=== PATIENT | female | born 1970 | race Caucasian/White ===

== ENCOUNTER 2019-04-08 08:12 | Outpatient (CLI) | payer OTHER ==
--- NOTE | 2019-04-09 16:05 | Nuclear Medicine Report ---
Reason: ABN THYROID FUNCTION TEST, THYROID NODULE Procedure Date: 04/08/2019 Accession Number: [id number] / [id number] Procedure: NM - Thyroid Imaging and Uptake CPT Code: 74348 FULL RESULT: EXAM: THYROID UPTAKE AND SCAN EXAM DATE: 04/08/2019 03:40 PM. CLINICAL HISTORY: ABN THYROID FUNCTION TEST, THYROID NODULE. Previous left hemithyroidectomy. COMPARISON: None available. TECHNIQUE: Patient was administered 410 microcuries of I-123 orally and returned at 6 and 24 hours for thyroid uptake measurement. At 6 hours after radioiodine ingestion, anterior gamma camera images of the patient's neck were obtained from 3 standard angles. FINDINGS: Uptake: 6 Hour: 14.5%. 24 Hour: 24.3%. Thyroid Scan: Absent left thyroid lobe. No discrete right thyroid lobe nodule. IMPRESSION: 1. Normal 6 and 24-hour uptake. 2. Absent left thyroid lobe. No discrete right thyroid lobe nodule. RADIA
== END 2019-04-08 08:13 | disposition home or self-care (01) ==
LOC: DI 08:12
PROVIDERS: ATTEND Internal Medicine Endocrinology, Diabetes & Metabolism
DX: E04.1 Nontoxic single thyroid nodule (principal); R94.6 Abnormal results of thyroid function studies
CPT/HCPCS: 78014

== ENCOUNTER 2021-11-25 07:53 | Outpatient (CLI) | payer OTHER ==
--- NOTE | 2021-11-25 12:24 | XRAY Report ---
PROCEDURE: Ankle 3 View LT INDICATIONS: ANKLE PAIN TECHNIQUE: 3 views of the ankle were acquired. COMPARISON: None FINDINGS: Bones: No fractures or dislocations. Ankle mortise is normally aligned. No suspicious bony lesions . Soft tissues: No tibiotalar joint effusion. Achilles tendon appears normal. IMPRESSION: No visualized acute fracture or dislocation. However, occult injury cannot be excluded. Recommend short interval imaging follow-up in 7-10 days as clinically indicated for additional evalua tion. Reviewed by: Soledad Garcia MD on 11/25/2021 11:23 AM JORGE Approved by: Soledad Garcia MD on 11/25/2021 11:23 AM JORGE Station ID: [id number]
== END 2021-11-25 23:59 | disposition home or self-care (01) ==
LOC: DI.WOS 07:53
PROVIDERS: ATTEND Physician Assistant
DX: M25.572 Pain in left ankle and joints of left foot (principal)

== ENCOUNTER 2022-01-05 09:16 | Outpatient (CLI) | payer OTHER ==
--- NOTE | 2022-01-05 11:11 | MRI Report ---
PROCEDURE: Shoulder LT W/O INDICATIONS: ROTATOR CUFF TEAR TECHNIQUE: Noncontrast oblique coronal T2 fast spin echo with fat saturation, oblique sagittal T1 spin echo and T2 fast spin echo with fat saturation, axial T1 spin echo and T2 fast spin echo with fat saturation t hrough the shoulder. COMPARISON: None. FINDINGS: Image quality: Excellent. Rotator cuff: Mild T2 signal elevation throughout the supraspinatus and infraspinatus tendons at the humeral insertion sites extending the muscular tendinous junctions, indicating tendinopathy. No evide nce of tearing involving the subscapularis, supra spinatus, infraspinatus, nor teres minor tendons. N o rotator cuff atrophy. Bones and bursae: No bone marrow contusions or fractures. Mild acromioclavicular joint degeneration. The acromion demonstrates conventional anatomy, without an os acromiale. Moderate subacromial/subde ltoid bursal fluid is present. Capsule and soft tissues: There is a focal region of undercutting of the mid anterior labrum. Small p monica labral cyst adjacent to the mid posterior labrum. The long head of the biceps tendon demonstrates normal location and morphology. The rotator interval appears normal, without fibrosis. The coracoh umeral ligament is normal in thickness. IMPRESSION: 1. Supraspinatus and infraspinatus tendinopathy without tear. 2. Acromioclavicular joint osteoarthritis. 3. Subacromial bursitis. 4. Possible glenoid labral tearing. Reviewed by: Julianna Marc MD on 01/05/2022 11:09 AM PDT Approved by: Julianna Marc MD on 01/05/2022 11:09 AM PDT Station ID: [id number]
== END 2022-01-05 09:17 | disposition home or self-care (01) ==
LOC: DI 09:16
PROVIDERS: ATTEND Physician Assistant
DX: M75.82 Other shoulder lesions, left shoulder (principal); M19.012 Primary osteoarthritis, left shoulder; M75.52 Bursitis of left shoulder